=== PATIENT | female | born 1990 | race Caucasian/White ===

== ENCOUNTER 2021-05-17 12:16 | Emergency (ER) | payer BC ==
[~2021-05-17] VITALS: Ht 162.6 cm; Wt 68.0 kg
[2021-05-17] MEDS ORDERED: ketorolac trometh. 30mg/ml inj. IV ONE (13:55)
[2021-05-17] MEDS ORDERED: normal saline 1000ml 1,000 ML IV ONE (13:55)
[2021-05-17] MEDS ORDERED: acetaminophen 325mg tablet PO ONE (13:55)
[2021-05-17] MEDS ORDERED: proCHLORperazine 10 MG/2 ml inj IV PRN (13:55)
--- NOTE | 2021-05-17 13:56 | NUR ---
pt was evaluated by Dr Mathur, called a level one stroke alert, pt is sitting comfortably in chair, amb with steady gait, talking full sentences, waiting to go to CT
--- NOTE | 2021-05-17 14:10 | NUR ---
ARRIVED TO BED 8 FOR STROKE ALERT, PT ALERT AND ORIENTED NO DISTRESS. READY FOR CT SCAN.
[2021-05-17 14:11] LABS: BASOPHILS % (AUTO) 0.5 % (0-1); EOSINOPHILS # (AUTO) 0.1 X10'3 (0-0.9); EOSINOPHILS % (AUTO) 1.2 % (0-6); HEMATOCRIT 39.8 % (35.0-45.0); HEMOGLOBIN 13.6 g/dl (12.0-16.0); LYMPHOCYTES # (AUTO) 2.6 X10'3 (1.1-4.8); LYMPHOCYTES % (AUTO) 32.5 % (21-51); MEAN CORPUSCULAR HEMOGLOBIN 31.1 PG (27.0-31.0); MEAN CORPUSCULAR HGB CONC 34.2 g/dL (33.0-36.5); MEAN CORPUSCULAR VOLUME 90.9 FL (78-98); MEAN PLATELET VOLUME 8.5 FL (7.4-10.4); MONOCYTES # (AUTO) 0.5 X10'3 (0-0.9); MONOCYTES % (AUTO) 6.2 % (2-12); NEUTROPHILS # (AUTO) 4.7 X10'3 (1.8-7.7); NEUTROPHILS % (AUTO) 59.6 % (42-75); PLATELET COUNT 331 X10'3 (140-440); RED BLOOD COUNT 4.38 X10'6 (4.20-5.60); RED CELL DISTRIBUTION WIDTH 12.4 % (11.5-14.5); WHITE BLOOD COUNT 7.9 X10'3 (4.5-11.0)
[2021-05-17 14:21] LABS: PARTIAL THROMBOPLASTIN TIME 29 SECONDS (22-32)
[2021-05-17 14:26] LABS: ALANINE AMINOTRANSFERASE 27 U/L (12-78); ALBUMIN/GLOBULIN RATIO 1.1 (1.1-1.5); ALKALINE PHOSPHATASE 70 IU/L (46-116); ANION GAP 8 (8-16); ASPARTATE AMINO TRANSFERASE 18 U/L (10-37); BILIRUBIN,TOTAL 0.2 MG/DL (0.1-1.0); BLOOD UREA NITROGEN 13 MG/DL (7-18); BUN/CREATININE RATIO 15.3 (6.6-38.0); CALCIUM 8.4 MG/DL (8.5-10.1); CHLORIDE 107 MMOL/L (99-107); CREATININE 0.85 MG/DL (0.40-0.90); GLUCOSE 95 MG/DL (70-104); HCG SERUM QL NEGATIVE; POTASSIUM 3.8 MMOL/L (3.5-5.1); SODIUM 142 MMOL/L (135-145); TOTAL CARBON DIOXIDE 26.7 MMOL/L (24-32); TOTAL PROTEIN 7.5 G/DL (6.4-8.2); eGFR 79 ML/MIN
--- NOTE | 2021-05-17 14:28 | NUR ---
DR. NIETO FROM [facility] [place] CONSULTED VIA TELEMEDICINE. HE HAS DISCUSSED CARE WITH DR. BABB, NIHSS 0 WILL TREAT FOR SUSPECTED COMPLEX MIGRAINE.
[2021-05-17 14:29] LABS: TROPONIN I < 0.04 NG/ML (0.0-0.05)
[2021-05-17] MEDS ORDERED: diphenhydrAMINE 50 mg/ml inj IV ONE (14:35)
[2021-05-17] MEDS ORDERED: iohexol 350MG/ML 100ml bottle IV ONE (14:41)
[2021-05-17] MEDS ORDERED: NO HOME MEDS (15:03)
[2021-05-17 16:56] VITALS: BP 106/72
== END 2021-05-17 16:50 | disposition home or self-care (01) ==
LOC: ER 12:18
DX: G43.909 Migraine, unspecified, not intractable, without status migrainosus (principal); R20.0 Anesthesia of skin
CPT/HCPCS: 36415; 70450; 70496; 70498; 71045; 80053; 84484; 84703; 85025; 85610; 85730; 96361; 96374; 96375; 99285; J0780; J1200; J1885; J7030; Q9967; 99284